=== PATIENT | female | born 1990 | race Caucasian/White ===

== ENCOUNTER 2018-02-10 07:55 | Emergency (ER) | payer OTHER ==
[2018-02-10] MEDS ORDERED: NA CHLORIDE 0.9% 1,000 ML ONE (08:25)
[2018-02-10 08:45] LABS: Absolute Lymphocytes (CBC) 1.5 K/uL (0.7-4.9); Absolute Monocytes 0.7 K/uL (0.1-1.3); Absolute Neutrophil 5.1 K/uL (1.8-8.0); Basophils % 0.5 % (0-1.3); Eosinophils % 1.1 % (0-4.4); Hematocrit 38.6 % (36.0-45.0); Lymphocytes % 20.4 % (15.3-44.8); MCH 28.5 pg (27.0-35.0); MCV 87.6 fL (80-100); MPV 10.4 fL (7.6-11.3); Monocytes % 8.8 % (3.3-12.3); RBC Red Blood Cell Count 4.41 M/uL (3.86-4.86)
--- NOTE | 2018-02-10 08:53 | RAD REPORT ---
EXAM DESCRIPTION: CT - Stone Protocol - 02/10/2018 8:35 am CLINICAL HISTORY: Right-sided back pain radiating to the right upper quadrant COMPARISON: None. TECHNIQUE: Axial 5 mm thick images were obtained without oral or IV contrast. The [id number] span s the entirety of the system partially obscuring uppermost abdomen and lung bases. All CT scans are performed using dose optimization technique as appropriate and may include automated exposure control or mA/KV adjustment according to patient size. FINDINGS: Mild dilatation of the right collecting system delete select to at least the pelvic level. Ureter is difficult to separate from the other soft tissues in the lower pelvis. There is a 3 millim eter calcification in the lower right pelvis. No other phleboliths seen. Although this is somewhat mo re medial than expected, this calcification could be within the distal ureter given the mild dilatati on on the patient's right-sided symptoms. No other obstructing or nonobstructing calculi of either collecting system or kidney. No perinephric stranding. No suspicious renal masses. Isodense masses and pyelonephritis are not excluded on a stone protocol CT scan. No urinary bladder suspicious finding. Uterus and ovaries show no suspicious findings. Imaged portions of the liver, spleen and pancreas show no suspicious findings on non-contrast imaging . No gallbladder or biliary tree abnormality identified. No significant adrenal finding. No suspicious bowel findings. No hernia, mass or bulky lymphadenopathy noted. No free air, free fluid or inflammatory stranding. No significant bony abnormality. IMPRESSION: Mild dilatation of the right collecting system. A 3 millimeter lower right pelvic calcif ication is probably but not definitively ureteral in location. No other renal or non renal calculi identified. No other significant finding to explain right-sided symptoms. Isodense masses and pyelonephritis are not excluded on stone protocol technique.
[2018-02-10 09:10] LABS: Potassium 4.1 mEq/L (3.6-5.0)
[2018-02-10 09:17] LABS: Bilirubin Direct 0.1 mg/dL (0-0.2); Bilirubin Total 0.5 mg/dL (0.3-1.2); Protein, Total 7.2 g/dL (6.0-8.3)
[2018-02-10] MEDS ORDERED: TAMSULOSIN 0.4 MG SR CAP ONE (09:34)
[2018-02-10] MEDS ORDERED: KETOROLAC 30 MG/ML INJ ONE (09:34)
[2018-02-10] MEDS ORDERED: Magnesium Sulfate 2gm IVPB 2 G/50 ML BAG IV ONE (09:35)
[2018-02-10] MEDS ORDERED: CEFTRIAXONE/SWI 1gm 1 GM/10 ML SYR ONE (09:35)
[2018-02-10 09:49] LABS: Urine Bacteria 20-50 /HPF (<20); Urine Culture Reflex Order REFLEXED; Urine Mucus 2+ /HPF (NONE SEEN)
[2018-02-10 09:50] LABS: Urine Blood 2+ (NEG); Urine Glucose NEGATIVE (NEG); Urine Protein 1+ (NEG); Urine pH 6.5 (5.0-7.0)
--- NOTE | 2018-02-10 10:22 | EDPHYS ---
Physician Documentation [facility] Name: Sydni Herrera Age: 27 yrs Sex: Female : 1990 Arrival Date: 02/10/2018 Time: 07:59 Bed 15 Private MD: None, None ED Physician Yury Chaparro HPI: 02/10 08:18 This 27 yrs old Female presents to ER via Ambulatory with complaints of Back cp Pain, Abdominal Pain. 08:18 The patient complains of pain in the right mid back. The pain radiates to the abdomen. cp Onset: The symptoms/episode began/occurred 3 day(s) ago. Modifying factors: the symptoms are aggravated by movement, palpation/percussion. Associated signs and symptoms: Pertinent negatives: diarrhea, fever, headache, pain radiating to the lower extremities, vomiting. Severity of pain: in the emergency department the pain is unchanged despite home interventions. 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 - Social history:: Smoking status: Patient/guardian denies using tobacco. ROS: 08:20 Constitutional: Negative for body aches, chills, fever, poor PO intake. cp 08:20 Eyes: Negative for injury, pain, redness, and discharge. cp 08:20 ENT: Negative for drainage from ear(s), ear pain, sore throat, difficulty swallowing, difficulty handling secretions. 08:20 Cardiovascular: Negative for chest pain, edema, palpitations. 08:20 Respiratory: Negative for cough, shortness of breath, wheezing. 08:20 Abdomen/GI: Positive for abdominal pain, Negative for vomiting, diarrhea, constipation, black/tarry stool, rectal bleeding. 08:20 : Positive for flank pain. 08:20 Skin: Negative for cellulitis, rash. 08:20 Neuro: Negative for altered mental status, headache, weakness. 08:20 All other systems are negative. Exam: 08:25 Head/Face: Normocephalic, atraumatic. cp 08:25 Constitutional: The patient appears in no acute distress, alert, awake, non-toxic, well developed, well nourished. 08:25 Eyes: Periorbital structures: appear normal, Conjunctiva: normal, no exudate, no injection, Sclera: no appreciated abnormality, Lids and lashes: appear normal, bilaterally. 08:25 ENT: External ear(s): are unremarkable, Nose: is normal, Mouth: Lips: moist, Oral mucosa: moist, Posterior pharynx: is normal, airway is patent, no erythema, no exudate. 08:25 Neck: ROM/movement: is normal, is supple, without pain, no range of motions cp limitations, no meningismus, no nuchal rigidity. 08:25 Chest/axilla: Inspection: normal, Palpation: is normal, no crepitus, no tenderness. 08:25 Cardiovascular: Rate: normal, Rhythm: regular. cp 08:25 Respiratory: the patient does not display signs of respiratory distress, Respirations: normal, no use of accessory muscles, no retractions, no splinting, no tachypnea, labored breathing, is not present, Breath sounds: are clear throughout, no decreased breath sounds, no stridor, no wheezing. 08:25 Abdomen/GI: Inspection: abdomen appears normal, Bowel sounds: active, all quadrants, Palpation: soft, in all quadrants, moderate abdominal tenderness, in the right upper quadrant and right lower quadrant, rebound tenderness, is not appreciated, involuntary guarding, is not appreciated. 08:25 Back: pain, that is moderate, of the right mid back, ROM is normal. cp 08:25 Skin: cellulitis, is not appreciated, no rash present. Vital Signs: 08:13 BP 126 / 83; Pulse 84; Resp 16; Temp 98.2; Pulse Ox 100% on R/A; Weight 72.57 kg; iw Height 5 ft. 7 in. (170.18 cm); Pain 7/10; 10:53 BP 113 / 84; Pulse 88; Resp 16; Pulse Ox 100% on R/A; Pain 3/10; sg 08:13 Body Mass Index 25.06 (72.57 kg, 170.18 cm) iw MDM: 08:06 Patient medically screened. cp 09:00 Differential diagnosis: nephrolithiasis, pyelonephritis, UTI, pancreatitis. cp 10:18 Data reviewed: vital signs, nurses notes, lab test result(s), radiologic studies, CT cp scan. 10:18 Counseling: I had a detailed discussion with the patient and/or guardian regarding: the cp historical points, exam findings, and any diagnostic results supporting the discharge/admit diagnosis, lab results, radiology results, to return to the emergency department if symptoms worsen or persist or if there are any questions or concerns that arise at home. Response to treatment: the patient's symptoms have mildly improved after treatment, and as a result, I will discharge patient. 02/10 08:17 Order name: Urine Dipstick--Ancillary (enter results); Complete Time: 10:15 em1 02/10 08:17 Order name: Urine --Ancillary (enter results); Complete Time: 10:15 em1 02/10 08:18 Order name: Urine Microscopic Only; Complete Time: 10:15 em1 02/10 10:16 Interpretation: Normal except: UWBC LOADED; URBC 10-20; UBACT 20-50. cp 02/10 08:23 Order name: Amylase, Serum; Complete Time: 10:15 cp 02/10 08:23 Order name: Basic Metabolic Panel; Complete Time: 10:15 cp 02/10 10:16 Interpretation: Normal except: GFR 89. cp 02/10 08:23 Order name: CBC with Diff; Complete Time: 08:56 cp 02/10 08:57 Interpretation: Within normal limits. cp 02/10 08:23 Order name: Creatinine for Radiology; Complete Time: 08:56 cp 02/10 08:23 Order name: Hepatic Function; Complete Time: 10:15 cp 02/10 08:23 Order name: Lipase; Complete Time: 10:15 cp 02/10 08:23 Order name: CT Stone Protocol; Complete Time: 08:56 cp 02/10 09:51 Order name: Urine Culture EDOH 02/10 08:17 Order name: Urine Dipstick-Ancillary (obtain specimen); Complete Time: 08:17 em1 02/10 08:17 Order name: Urine Test (obtain specimen); Complete Time: 08:17 em1 02/10 08:23 Order name: IV Saline Lock; Complete Time: 08:24 cp 02/10 08:23 Order name: Labs collected and sent; Complete Time: 08:24 cp Administered Medications: 08:43 Drug: NS 0.9% 1000 ml Route: IV; Rate: 1 bolus; Site: right antecubital; sg 09:30 Drug: Rocephin - (cefTRIAXone) 1 grams {Note: medication administered IVP per pharmacy protocol.} Route: IVPB; Infused Over: 30 mins; Site: right antecubital; 09:30 Drug: TORadol 30 mg Route: IVP; Site: right antecubital; sg 09:30 Drug: Flomax 0.4 mg Route: PO; sg 09:40 Drug: Magnesium Sulfate 2 grams Route: IVPB; Infused Over: 2 hrs; Site: right sg antecubital; Disposition: 12:00 Co-signature as Attending Physician, Yury Chaparro MD I agree with the assessment and kdr plan of care. Disposition: 02/10/18 10:20 Discharged to Home. Impression: Right Pyelonephritis. - Condition is Stable. - Discharge Instructions: Pyelonephritis, Adult. - Prescriptions for Tylenol- Codeine #3 300-30 mg Oral Tablet - take 2 tablets by ORAL route every 6 hours As needed; 20 tablet. Zofran 4 mg Oral Tablet - take 1 tablet by ORAL route every 12 hours As needed; 20 tablet. Cipro 500 mg Oral Tablet - take 1 tablet by ORAL route every 12 hours for 7 days; 14 tablet. Flomax 0.4 mg Oral Capsule, Sust. Release 24 hr - take 1 capsule by ORAL route once daily As needed 1/2 hour following the same meal each day; 5 capsule. - Work release form, Medication Reconciliation Form, Thank You Letter, Antibiotic Education, Prescription Opioid Use form. - Follow up: Michelle Conklni MD; When: 48 Hours; Reason: symptoms continue. - Problem is new. - Symptoms have improved. Signatures: Dispatcher [employer] EDMS Dandre Mariano RN RN Yury Chaparro MD MD kdr Kinga Wilks RN RN iw Bartolo Bletran em1 Josué Crooks PA PA cp Corrections: (The following items were deleted from the chart) 08:14 08:13 Home Meds: metoprolol tartrate 25 mg Oral tab daily; [facility] 10:53 10:20 02/10/2018 10:20 Discharged to Home. Impression: Right Pyelonephritis. Condition sg is Stable. Forms are Medication Reconciliation Form, Thank You Letter, Antibiotic Education, Prescription Opioid Use. Follow up: Michelle Conklin; When: 48 Hours; Reason: symptoms continue. Problem is new. Symptoms have improved. cp
--- NOTE | 2018-02-10 10:22 | ER ---
Nurse's Notes [facility] Name: Sydni Herrera Age: 27 yrs Sex: Female : 1990 Arrival Date: 02/10/2018 Time: 07:59 Bed 15 Private MD: None, None Diagnosis: Right Pyelonephritis Presentation: 02/10 08:09 Presenting complaint: Patient states: has had right mid back pain since Thursday, pain iw radiates to RUQ, described as sharp when she takes a deep breath in or when she moves a certain way, then pain is dull throughout day, rates pain 7/10, denies urinary symptoms, denies hx of kidney stones, denies injury to area, denies n/v/d. Transition of care: patient was not received from another setting of care. Onset of symptoms was February 10, 2018. Initial Sepsis Screen: Does the patient meet any 2 criteria? No. Patient's initial sepsis screen is negative. Does the patient have a suspected source of infection? No. Patient's initial sepsis screen is negative. Care prior to arrival: None. 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 - Social history:: Smoking status: Patient/guardian denies using tobacco. Screenin:43 Abuse screen: Denies threats or abuse. Denies injuries from another. Nutritional sg screening: No deficits noted. Tuberculosis screening: No symptoms or risk factors identified. Never had TB. Fall Risk None identified. Assessment: 08:37 General: Appears in no apparent distress. comfortable, well groomed, well developed, sg well nourished, Behavior is calm, cooperative, appropriate for age. Pain: Complains of pain in right mid back Pain radiates to right upper quadrant Quality of pain is described as tender. Neuro: Level of Consciousness is awake, alert, obeys commands, Oriented to person, place, time, Oncology Social Work are equal bilaterally Moves all extremities. Full function Speech is normal, Facial symmetry appears normal. Cardiovascular: Heart tones S1 S2 present Capillary refill is brisk in bilateral fingers Patient's skin is warm and dry. Chest pain is denied. Respiratory: Airway is patent Respiratory effort is even, unlabored, Respiratory pattern is regular, symmetrical. GI: No signs and/or symptoms were reported involving the gastrointestinal system. GI: Abdomen is flat, non-distended, Bowel sounds present X 4 quads. Abd is soft and non tender X 4 quads. : Reports pain in right flank(s), upper quadrant(s) urinary frequency. EENT: No signs and/or symptoms were reported regarding the EENT system. Derm: Skin is pink, warm \T\ dry. Musculoskeletal: No signs and/or symptoms reported regarding the musculoskeletal system. Vital Signs: 08:13 BP 126 / 83; Pulse 84; Resp 16; Temp 98.2; Pulse Ox 100% on R/A; Weight 72.57 kg; iw Height 5 ft. 7 in. (170.18 cm); Pain 7/10; 10:53 BP 113 / 84; Pulse 88; Resp 16; Pulse Ox 100% on R/A; Pain 3/10; sg 08:13 Body Mass Index 25.06 (72.57 kg, 170.18 cm) iw ED Course: 07:59 Patient arrived in ED. mr 07:59 None, None is Private Physician. mr 08:04 Dandre Mariano, RN is Primary Nurse. sg 08:06 Josué Crooks PA is PHCP. cp 08:06 Yury Chaparro MD is Attending Physician. cp 08:12 Triage completed. iw 08:13 Arm band placed on. iw 08:[address] vm2 08:30 Initial lab(s) drawn, by dc, sent to lab. Inserted saline lock: 22 gauge in right jb1 antecubital area, using aseptic technique. Blood collected. 08:34 CT completed. Patient tolerated procedure well. Patient moved to CT via wheelchair. vm2 Patient moved back from CT. 08:35 CT Stone Protocol In Process Unspecified. EDMS 08:40 Patient has correct armband on for positive identification. Pulse ox on. NIBP on. Head sg of bed elevated. 08:40 No provider procedures requiring assistance completed. sg 10:18 Michelle Conklin MD is Referral Physician. cp 10:53 IV discontinued, intact, bleeding controlled, No redness/swelling at site. Pressure sg dressing applied. Administered Medications: 08:43 Drug: NS 0.9% 1000 ml Route: IV; Rate: 1 bolus; Site: right antecubital; sg 09:30 Drug: Rocephin - (cefTRIAXone) 1 grams {Note: medication administered IVP per pharmacy protocol.} Route: IVPB; Infused Over: 30 mins; Site: right antecubital; 09:30 Drug: TORadol 30 mg Route: IVP; Site: right antecubital; sg 09:30 Drug: Flomax 0.4 mg Route: PO; sg 09:40 Drug: Magnesium Sulfate 2 grams Route: IVPB; Infused Over: 2 hrs; Site: right sg antecubital; Outcome: 10:20 Discharge ordered by MD. cp 10:50 Discharged to home ambulatory, with friend. 10:50 Condition: stable 10:50 Discharge instructions given to patient, Instructed on discharge instructions, follow up and referral plans. no drinking with medication, no driving heavy equipment, medication usage, safety practices, Demonstrated understanding of instructions, follow-up care, medications, Prescriptions given X 4. 10:53 Patient left the ED. Addendum: 02/13/2018 07:36 Addendum: Culture Results: Positive urine culture. No further action required. Bacteria a a5 sensitive to prescribed antibiotic. Signatures: Dispatcher [employer] Gerardo Rowe [email or web address] Dandre Mariano RN RN Irlanda Granados mr Kinga Wilks RN RN Kimberley Riggins RN RN aa5 Josué Crooks PA PA cp McGuire, Victoria 2 Corrections: (The following items were deleted from the chart) 02/10 08:14 08:13 Home Meds: metoprolol tartrate 25 mg Oral tab daily; iw iw
[2018-02-10 10:57] VITALS: BP 126/83; TEMP 98.2; O2SAT 100
== END 2018-02-10 10:53 | disposition home or self-care (01) ==
LOC: ER 07:55
DX: N12 Tubulo-interstitial nephritis, not specified as acute or chronic (principal)
CPT/HCPCS: 36415; 74176; 76377; 80048; 80076; 81003; 81015; 81025; 82150; 83690; 85025; 87077; 87086; 87088; 87186; 96374; 96375; 99284; J0696; J3475; J7030

== ENCOUNTER 2018-02-24 12:56 | Emergency (ER) | payer OTHER ==
[2018-02-24 13:32] LABS: Urine Blood TRACE (NEG); Urine Glucose NEGATIVE (NEG); Urine Protein NEGATIVE (NEG); Urine Specific Gravity >1.030 (1.005-1.030); Urine pH 5.5 (5.0-7.0)
[2018-02-24] MEDS ORDERED: CYCLOBENZAPRINE 10 MG TAB ONE (14:11)
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
[2018-02-24 15:25] VITALS: TEMP 97.6
[2018-02-24 15:27] VITALS: BP 94/68; O2SAT 100
== END 2018-02-24 15:21 | disposition home or self-care (01) ==
LOC: ER 12:56
DX: S13.9XXA Sprain of joints and ligaments of unspecified parts of neck, initial encounter (principal); S33.5XXA Sprain of ligaments of lumbar spine, initial encounter; S33.9XXA Sprain of unspecified parts of lumbar spine and pelvis, initial encounter; V49.49XA Driver injured in collision with other motor vehicles in traffic accident, initial encounter
CPT/HCPCS: 70450; 71250; 72125; 81003; 81025; 99284

== ENCOUNTER 2018-03-30 14:39 | Emergency (ER) | payer OTHER ==
--- NOTE | 2018-03-30 15:30 | EDPHYS ---
Physician Documentation [facility] Name: Sydni Herrera Age: 27 yrs Sex: Female : 1990 Arrival Date: 03/30/2018 Time: 14:43 Bed 23 Private MD: ED Physician Josué Herrera HPI: 03/30 15:24 This 27 yrs old Female presents to ER via Ambulatory with complaints of Back marsha Pain, Fever, 5 WKS . 15:24 The patient presents with pain that is acute, with no known mechanism of injury. The marsha symptoms are located in the low back, left low back and left mid back. Onset: The symptoms/episode began/occurred 2 day(s) ago. The pain does not radiate. Associated signs and symptoms: Pertinent positives: dysuria, fever. Modifying factors: The patient symptoms are alleviated by nothing, remaining still, rest. Severity of symptoms: At their worst the symptoms were mild, moderate, in the emergency department the symptoms are unchanged. 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 - Social history:: Smoking status: Patient/guardian denies using tobacco, Patient/guardian denies using alcohol. - Ebola Screening: : Patient negative for fever greater than or equal to 101.5 degrees Fahrenheit, and additional compatible Ebola Virus Disease symptoms Patient denies exposure to infectious person Patient denies travel to an Ebola-affected area in the 21 days before illness onset. - Family history:: not pertinent. ROS: 15:24 Constitutional: Negative for fever, chills, and weight loss, Eyes: Negative for injury, marsha pain, redness, and discharge, ENT: Negative for injury, pain, and discharge, Neck: Negative for injury, pain, and swelling, Cardiovascular: Negative for chest pain, palpitations, and edema, Respiratory: Negative for shortness of breath, cough, wheezing, and pleuritic chest pain, Abdomen/GI: Negative for abdominal pain, nausea, vomiting, diarrhea, and constipation, : Negative for injury, bleeding, discharge, and swelling, MS/Extremity: Negative for injury and deformity, Skin: Negative for injury, rash, and discoloration, Neuro: Negative for headache, weakness, numbness, tingling, and seizure, Psych: Negative for depression, anxiety, suicide ideation, homicidal ideation, and hallucinations, Allergy/Immunology: Negative for hives, rash, and allergies, Endocrine: Negative for neck swelling, polydipsia, polyuria, polyphagia, and marked weight changes, Hematologic/Lymphatic: Negative for swollen nodes, abnormal bleeding, and unusual bruising. 15:24 Back: Positive for injury or acute deformity, pain with movement, flank pain, on the right. Exam: 15:24 Constitutional: This is a well developed, well nourished patient who is awake, alert, marsha and in no acute distress. Head/Face: Normocephalic, atraumatic. Eyes: Pupils equal round and reactive to light, extra-ocular motions intact. Lids and lashes normal. Conjunctiva and sclera are non-icteric and not injected. Cornea within normal limits. Periorbital areas with no swelling, redness, or edema. ENT: Nares patent. No nasal discharge, no septal abnormalities noted. Tympanic membranes are normal and external auditory canals are clear. Oropharynx with no redness, swelling, or masses, exudates, or evidence of obstruction, uvula midline. Mucous membranes moist. Neck: Trachea midline, no thyromegaly or masses palpated, and no cervical lymphadenopathy. Supple, full range of motion without nuchal rigidity, or vertebral point tenderness. No Meningismus. Chest/axilla: Normal chest wall appearance and motion. Nontender with no deformity. No lesions are appreciated. Cardiovascular: Regular rate and rhythm with a normal S1 and S2. No gallops, murmurs, or rubs. Normal PMI, no JVD. No pulse deficits. Respiratory: Lungs have equal breath sounds bilaterally, clear to auscultation and percussion. No rales, rhonchi or wheezes noted. No increased work of breathing, no retractions or nasal flaring. Abdomen/GI: Soft, non-tender, with normal bowel sounds. No distension or tympany. No guarding or rebound. No evidence of tenderness throughout. Female : Normal external genitalia. Skin: Warm, dry with normal turgor. Normal color with no rashes, no lesions, and no evidence of cellulitis. MS/ Extremity: Pulses equal, no cyanosis. Neurovascular intact. Full, normal range of motion. Neuro: Awake and alert, GCS 15, oriented to person, place, time, and situation. Cranial nerves II-XII grossly intact. Motor strength 5/5 in all extremities. Sensory grossly intact. Cerebellar exam normal. Normal gait. Psych: Awake, alert, with orientation to person, place and time. Behavior, mood, and affect are within normal limits. 15:24 Back: pain, that is mild, that is moderate, of the left low back and left mid back, ROM is painful, normal spinal alignment noted, CVA tenderness, is absent, muscle spasm, is appreciated in the left low back and left mid back. Vital Signs: 14:48 BP 115 / 75; Pulse 91; Resp 18; Temp 99.2(O); Pulse Ox 98% on R/A; Weight 65.77 kg; hj Height 5 ft. 6 in. (167.64 cm); Pain 3/10; 14:48 Body Mass Index 23.40 (65.77 kg, 167.64 cm) MDM: 14:55 Patient medically screened. [facility] 15:24 Data reviewed: vital signs, nurses notes, lab test result(s), urinalysis. [facility] 03/30 15:24 Order name: Urine Culture [facility] 03/30 15:25 Order name: Urine Dipstick--Ancillary (enter results) 03/30 15:25 Order name: Urine --Ancillary (enter results) 03/30 15:24 Order name: PO challenge; Complete Time: 16:21 [facility] 03/30 15:24 Order name: Urine Dipstick-Ancillary (obtain specimen); Complete Time: 16:00 [facility] 03/30 15:24 Order name: Urine Test (obtain specimen); Complete Time: 16:00 [facility] Administered Medications: 16:00 Drug: Augmentin 875 mg Route: PO; aj1 16:21 Follow up: Response: No adverse reaction aj1 16:00 Drug: Tylenol 650 mg Route: PO; aj1 16:21 Follow up: Response: No adverse reaction aj1 16:00 Drug: Rocephin (cefTRIAXone) 1 grams Route: IM; Site: right gluteus; aj1 16:20 Follow up: Response: No adverse reaction aj1 16:20 Not Given (order changed to IM per Dr. Herrera): Rocephin - (cefTRIAXone) 1 grams IVPB aj1 once over 30 mins; (mix in 50 mL NS) Disposition: 03/30/18 15:29 Discharged to Home. Impression: Cystitis, Acute pharyngitis, related conditions, unspecified, first trimester, Fever, unspecified. - Condition is Stable. - Discharge Instructions: Dysuria, Fever, Adult, Pharyngitis, First Trimester of , [id number], Pharyngitis, [id number], Pelvic Rest, Sore Throat, [id number]. - Prescriptions for Augmentin 875- 125 mg Oral Tablet - take 1 tablet by ORAL route every 12 hours for 10 days; 20 tablet. Vitamin 27- 0.8 mg Oral Tablet - take 1 tablet by ORAL route once daily; 30 tablet. - Medication Reconciliation Form, Thank You Letter, Antibiotic Education, Prescription Opioid Use form. - Follow up: Private Physician; When: 2 - 3 days; Reason: Recheck today's complaints, Continuance of care, Re-evaluation by your physician. - Problem is new. - Symptoms have improved. Signatures: Dispatcher [employer] EDJanell Llamas RN RN aj1 Josué Herrera MD MD cha Joaquin, Henry, RN RN Corrections: (The following items were deleted from the chart) 16:23 15:29 03/30/2018 15:29 Discharged to Home. Impression: Cystitis; Acute pharyngitis; aj1 related conditions, unspecified, first trimester; Fever, unspecified. Condition is Stable. Forms are Medication Reconciliation Form, Thank You Letter, Antibiotic Education, Prescription Opioid Use. Follow up: Private Physician; When: 2 - 3 days; Reason: Recheck today's complaints, Continuance of care, Re-evaluation by your physician. Problem is new. Symptoms have improved. marsha
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
[2018-03-30 15:37] LABS: Urine Blood TRACE (NEG); Urine Glucose NEGATIVE (NEG); Urine Protein TRACE (NEG); Urine Specific Gravity 1.025 (1.005-1.030)
[2018-03-30] MEDS ORDERED: ACETAMINOPHEN 325 MG TABLET ONE (16:05)
[2018-03-30] MEDS ORDERED: CEFTRIAXONE 1000 MG/VIAL ONE (16:05)
[2018-03-30] MEDS ORDERED: AMOX/K CLAV 875 MG TAB ONE (16:06)
[2018-03-30 16:26] VITALS: BP 115/75; TEMP 99.2; O2SAT 98
== END 2018-03-30 16:23 | disposition home or self-care (01) ==
LOC: ER 14:39
DX: O23.11 Infections of bladder in pregnancy, first trimester (principal); J02.9 Acute pharyngitis, unspecified; Z3A.01 Less than 8 weeks gestation of pregnancy
CPT/HCPCS: 81003; 81025; 87077; 87086; 87088; 87186; 96372; 99283

== ENCOUNTER 2018-08-10 08:30 | Emergency (ER) | payer OTHER ==
[2018-08-10 09:13] LABS: Absolute Monocytes 1.2 K/uL (0.1-1.3); Absolute Neutrophil 9.6 K/uL (1.8-8.0); Basophils % 0.3 % (0-1.3); Eosinophils % 0.2 % (0-4.4); Hematocrit 30.6 % (36.0-45.0); Lymphocytes % 8.2 % (15.3-44.8); MCH 30.2 pg (27.0-35.0); MCV 87.3 fL (80-100); MPV 9.9 fL (7.6-11.3); Monocytes % 10.1 % (3.3-12.3)
[2018-08-10 09:28] LABS: Protime INR 1.01
[2018-08-10 09:34] LABS: ALT/SGPT 23 U/L (12-78); AST/SGOT 16 U/L (15-37); Albumin 2.7 g/dL (3.4-5.0); Alkaline Phosphatase 92 U/L (45-117); BUN Blood Urea Nitrogen 7 mg/dL (7-18); Bicarbonate 25 mmol/L (21-32); Bilirubin Direct 0.1 mg/dL (0-0.2); Bilirubin Total 0.3 mg/dL (0.2-1.0); Glucose Level 86 mg/dL (74-106); Magnesium 1.8 mg/dL (1.8-2.4); NT PRO-BNP 148 pg/mL (<125); Potassium 3.7 mmol/L (3.5-5.1); Sodium Level 137 mmol/L (136-145); Troponin (Emerg Dept Use Only) < 0.02 ng/mL (0.0-0.045)
--- NOTE | 2018-08-10 11:07 | RAD REPORT ---
EXAM DESCRIPTION: US - Extrem Venous W Compress Elieser - 08/10/2018 10:57 am CLINICAL HISTORY: elevated d-dimer in preg. Bilateral leg edema and swelling. COMPARISON: No comparisons TECHNIQUE: Real-time sonographic interrogation of the left and right lower extremity deep venous sys tems was performed. FINDINGS: Normal compressibility, flow augmentation, phasic flow and spontaneous flow is identified in both the left and right lower extremity deep venous systems. IMPRESSION: No sonographic evidence of left or right lower extremity deep venous thrombosis.
--- NOTE | 2018-08-10 11:15 | EDPHYS ---
Physician Documentation [facility] Name: Sydni Herrera Age: 27 yrs Sex: Female : 1990 Arrival Date: 08/10/2018 Time: 08:32 Bed 5 Private MD: None, None ED Physician Sebastian Bhagat HPI: 08/10 11:33 This 27 yrs old Female presents to ER via Wheelchair with complaints of Chest ps1 Pain - 24WK PG, Shortness Of Breath. 11:33 patient presenting with chest pain, shortness of breath, lower back pain. HX of ps1 WPW x2 ablations. Patient at [facility]. Dr. Reynaga () Candido ([facility]). Onset was this morning. Substernal , epigastric and lower back and ascending radiation. No hypoxia. No leg pain. No VB, CTX, LOF, DFM. . 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 - Social history:: Smoking status: Patient/guardian denies using tobacco. - Ebola Screening: : No symptoms or risks identified at this time. ROS: 11:33 Constitutional: Negative for fever, chills, and weight loss, Eyes: Negative for injury, ps1 pain, redness, and discharge, Respiratory: Negative for shortness of breath, cough, wheezing, and pleuritic chest pain, : Negative for injury, bleeding, discharge, and swelling, MS/Extremity: Negative for injury and deformity, Skin: Negative for injury, rash, and discoloration, Neuro: Negative for headache, weakness, numbness, tingling, and seizure. 11:33 Cardiovascular: Positive for chest pain. 11:33 Abdomen/GI: Positive for abdominal pain. 11:33 Back: Positive for lower back pain. Exam: 11:33 Constitutional: This is a well developed, well nourished patient who is awake, alert, ps1 and in no acute distress. Head/Face: Normocephalic, atraumatic. Eyes: Pupils equal round and reactive to light, extra-ocular motions intact. Lids and lashes normal. Conjunctiva and sclera are non-icteric and not injected. Chest/axilla: Normal chest wall appearance and motion. Nontender with no deformity. No lesions are appreciated. Respiratory: Lungs have equal breath sounds bilaterally, clear to auscultation and percussion. No rales, rhonchi or wheezes noted. No increased work of breathing, no retractions or nasal flaring. Abdomen/GI: Soft, non-tender, with normal bowel sounds. No distension or tympany. No guarding or rebound. No evidence of tenderness throughout. Back: No spinal tenderness. No costovertebral tenderness. Full range of motion. Skin: Warm, dry with normal turgor. Normal color with no rashes, no lesions, and no evidence of cellulitis. MS/ Extremity: Pulses equal, no cyanosis. Neurovascular intact. Full, normal range of motion. Neuro: Awake and alert, GCS 15, oriented to person, place, time, and situation. Cranial nerves II-XII grossly intact. Sensory grossly intact. 11:33 Cardiovascular: Rate: tachycardic, Rhythm: regular, Pulses: no pulse deficits are appreciated. 11:39 : Per OB RN: Cervix is closed and posterior. FHT 154 with accelerations. . ps1 Vital Signs: 08:41 BP 111 / 71; Pulse 105; Resp 15; Temp 97.9; Pulse Ox 100% on R/A; Pain 7/10; hb 09:06 BP 101 / 70; Pulse 103 MON; Resp 19; Pulse Ox 99% on R/A; sv 10:12 BP 100 / 68; Pulse 98; Resp 19; Pulse Ox 97% on R/A; sv 11:00 BP 97 / 71; Pulse 104; Resp 19; Temp 98; Pulse Ox 99% on R/A; sv 11:30 BP 115 / 67; Pulse 112; Resp 17; Pulse Ox 99% on R/A; sv 09:06 Sinus tachycardia sv MDM: 09:31 Patient medically screened. ps1 11:38 Data reviewed: vital signs, nurses notes, lab test result(s), EKG, radiologic studies, ps1 and as a result, I will transfer patient for EP evaluation. Otherwise stable. . Counseling: I had a detailed discussion with the patient and/or guardian regarding: the historical points, exam findings, and any diagnostic results supporting the discharge/admit diagnosis, the need to transfer to another facility, for higher level of care. 08/10 08:53 Order name: CBC with Diff; Complete Time: 09:53 ps1 08/10 08:53 Order name: LFT's; Complete Time: 09:36 ps1 08/10 08:53 Order name: Magnesium; Complete Time: 09:36 ps1 08/10 08:53 Order name: NT PRO-BNP; Complete Time: 09:36 ps1 08/10 08:53 Order name: PT-INR; Complete Time: 09:41 ps1 08/10 08:53 Order name: Troponin (emerg Dept Use Only); Complete Time: 09:36 ps1 08/10 08:53 Order name: CMP; Complete Time: 09:36 ps1 08/10 09:02 Order name: DD; Complete Time: 10:06 ps1 08/10 09:56 Order name: Extrem Venous W Compression Elieser US; Complete Time: 11:09 [facility] 08/10 11:42 Order name: Urine Dipstick--Ancillary (enter results); Complete Time: 12:28 bd 08/10 11:42 Order name: Urine --Ancillary (enter results); Complete Time: 12:28 bd 08/10 11:42 Order name: Urine Culture [facility] 08/10 11:42 Order name: Urine Microscopic Only; Complete Time: 12:28 [facility] 08/10 08:53 Order name: EKG; Complete Time: 08:54 ps1 08/10 08:53 Order name: Cardiac monitoring; Complete Time: 09:18 [facility] 08/10 08:53 Order name: EKG - Nurse/Tech; Complete Time: 09:18 [facility] 08/10 08:53 Order name: IV Saline Lock; Complete Time: 09:18 ps1 08/10 08:53 Order name: Labs collected and sent; Complete Time: 09:18 ps1 08/10 08:53 Order name: O2 Per Protocol; Complete Time: 09:18 ps1 08/10 08:53 Order name: O2 Sat Monitoring; Complete Time: 09:18 ps1 08/10 08:53 Order name: Urine Dipstick-Ancillary (obtain specimen); Complete Time: 11:48 ps1 EC:52 Rate is 98 beats/min. Rhythm is regular. QRS [place] is Normal. [place] interval is normal. QRS ps1 interval is normal. QT interval is normal. No Q waves. T waves are Normal. No ST changes noted. Clinical impression: WPW with faint delta waves. otherwise normal EKG. . Interpreted by me. Administered Medications: 11:57 CANCELLED (Duplicate Order): Rocephin - (cefTRIAXone) 1 grams IVPB once over 30 mins; sv (mix in 50 mL NS) 12:04 Drug: Rocephin - (cefTRIAXone) 1 grams Route: IVPB; Infused Over: 30 mins; Site: right antecubital; 12:06 Follow up: Response: No adverse reaction; IV Status: Completed infusion; IV Intake: sv 10ml ; given IVP Disposition: 08/10/18 11:14 Transfer ordered to [facility]. Diagnosis are WPW, Chest pain, Shortness of breath. - Reason for transfer: Higher level of care. - Accepting physician is [place]. - Condition is Stable. - Problem is an acute exacerbation. - Symptoms are unchanged. Signatures: Dispatcher [employer] Joy Andrade RN RN Denise Gannon RN RN Sebastian Bhagat MD MD ps1 Corrections: (The following items were deleted from the chart) 11:57 11:41 Rocephin - (cefTRIAXone) 1 grams IVPB once over 30 mins; (mix in 50 mL NS) sv ordered. ps1 11:57 11:57 Rocephin - (cefTRIAXone) 1 grams IVPB once over 30 mins; (mix in 50 mL NS) sv ordered. sv 12:34 11:14 08/10/2018 11:14 Transfer ordered to [facility]. sv Diagnosis is WPW; Chest pain; Shortness of breath. Reason for transfer: Higher level of care. Accepting physician is [place]. Condition is Stable. Problem is an acute exacerbation. Symptoms are unchanged. ps1
--- NOTE | 2018-08-10 11:15 | ER ---
Nurse's Notes [facility] Name: Sydni Herrera Age: 27 yrs Sex: Female : 1990 Arrival Date: 08/10/2018 Time: 08:32 Bed 5 Private MD: None, None Diagnosis: WPW;Chest pain;Shortness of breath Presentation: 08/10 08:40 Risk Assessment: Do you want to hurt yourself or someone else? Patient reports no sv desire to harm self or others. 08:43 Presenting complaint: Patient states: Low back pain x 2 days, SOB and left sided chest hb pain since this morning. Hx WPW. ablation x 2. Transition of care: patient was not received from another setting of care. Onset of symptoms was August 09, 2018. Initial Sepsis Screen: Does the patient meet any 2 criteria? No. Patient's initial sepsis screen is negative. Does the patient have a suspected source of infection? No. Patient's initial sepsis screen is negative. Care prior to arrival: None. 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 - Social history:: Smoking status: Patient/guardian denies using tobacco. - Ebola Screening: : No symptoms or risks identified at this time. Screenin:50 Abuse screen: Denies threats or abuse. Denies injuries from another. Nutritional sv screening: No deficits noted. Tuberculosis screening: No symptoms or risk factors identified. Fall Risk None identified. Assessment: 08:40 General: Appears in no apparent distress. comfortable, slender, well developed, sv Behavior is calm, cooperative, appropriate for age. Pain: Complains of pain in anterior aspect of left upper chest, xyphoid area and left breast Pain does not radiate. Pain currently is 7 out of 10 on a pain scale. Quality of pain is described as sharp, Pain began this morning while in the shower Is intermittent. Neuro: Level of Consciousness is awake, alert, obeys commands, Oriented to person, place, time, situation, Moves all extremities. Full function Speech is normal. Cardiovascular: Patient's skin is warm and dry. Rhythm is sinus rhythm. Respiratory: Reports shortness of breath on exertion Airway is patent Respiratory effort is even, unlabored, Respiratory pattern is regular, symmetrical. Derm: Skin is pink, warm \T\ dry. 08:45 Reassessment: TAMMI RN from L\T\D at bedside performing a vaginal exam on pt per Dr Bhagat. sv 10:20 Reassessment: Patient appears in no apparent distress at this time. No changes from sv previously documented assessment. Dr Bhagat in to speak with the pt regarding lab results. 10:30 Reassessment: Ultrasound at the bedside. sv 11:09 Reassessment: Patient appears in no apparent distress at this time. No changes from sv previously documented assessment. Patient and/or family updated on plan of care and expected duration. Pain level reassessed. Patient is alert, oriented x 3, equal unlabored respirations, skin warm/dry/pink. 11:53 Reassessment: Report called to Shireen at [facility]. sv Vital Signs: 08:41 BP 111 / 71; Pulse 105; Resp 15; Temp 97.9; Pulse Ox 100% on R/A; Pain 7/10; hb 09:06 BP 101 / 70; Pulse 103 MON; Resp 19; Pulse Ox 99% on R/A; sv 10:12 BP 100 / 68; Pulse 98; Resp 19; Pulse Ox 97% on R/A; sv 11:00 BP 97 / 71; Pulse 104; Resp 19; Temp 98; Pulse Ox 99% on R/A; sv 11:30 BP 115 / 67; Pulse 112; Resp 17; Pulse Ox 99% on R/A; sv 09:06 Sinus tachycardia sv ED Course: 08:32 Patient arrived in ED. sb2 08:33 None, None is Private Physician. sb2 08:40 Patient maintains SpO2 saturation greater than 95% on room air. sv 08:42 Joy Harvey, OPHELIA is Primary Nurse. sv 08:45 Triage completed. hb 08:45 bus driver/monitor on. Pulse ox on. NIBP on. Door closed. Warm blanket given. Head of bed sv elevated. 08:46 Arm band placed on right wrist. hb 08:48 Sebastian Bhagat MD is Attending Physician. ps1 08:50 Patient has correct armband on for positive identification. Placed in gown. Bed in low sv position. Side rails up X2. 08:50 Initial lab(s) drawn, by me, sent to lab. Inserted saline lock: 20 gauge in right sv antecubital area, using aseptic technique. Blood collected. Flushed right forearm with 5 ml normal saline. 08:57 EKG done, by health and safety tech. reviewed by Sebastian Bhagat MD. tc 10:21 Awaiting: Ultrasound. sv 10:43 Ultrasound completed. Patient tolerated well. aa4 10:56 Extrem Venous W Compression Elieser US In Process Unspecified. EDMS 11:09 Awaiting re-evaluation by ER provider. sv 12:33 No provider procedures requiring assistance completed. Patient transferred, IV remains sv in place. intact. Administered Medications: 11:57 CANCELLED (Duplicate Order): Rocephin - (cefTRIAXone) 1 grams IVPB once over 30 mins; sv (mix in 50 mL NS) 12:04 Drug: Rocephin - (cefTRIAXone) 1 grams Route: IVPB; Infused Over: 30 mins; Site: right hb antecubital; 12:06 Follow up: Response: No adverse reaction; IV Status: Completed infusion; IV Intake: sv 10ml ; given IVP Intake: 12:06 IV: 10ml; Total: 10ml. sv Outcome: 11:14 ER care complete, transfer ordered by . ps1 12:33 Transferred by ground EMS Transfer form completed. X-rays sent w/ patient. Note: sent sv to [facility] [place], report given to [facility]. 12:33 Condition: stable 12:33 Instructed on the need for transfer. 12:34 Patient left the ED. sv Addendum: 08/13/2018 07:58 Addendum: Culture Results: Positive urine culture. called [facility] who reports that patient s s has been discharged home. Rocephin given prior to transfer from our facility. Culture report shows sensitivity to Rocephin. Signatures: Dispatcher [employer] EDJoy Rosa RN RN January Villasenor aa4 Ewa Paulino RN RN Esthela Rodriguez, labor gang supervisor EKG Ttc Denise Gannon RN RN Sebastian Bhagat MD MD ps1 Claudia Carrillo sb2
[2018-08-10 12:09] LABS: Urine Blood TRACE (NEG); Urine Glucose NEGATIVE (NEG); Urine Protein NEGATIVE (NEG)
[2018-08-10] MEDS ORDERED: CEFTRIAXONE/SWI 1gm 1 GM/10 ML SYR ONE (12:09)
[2018-08-10 12:10] LABS: Urine Bacteria >50 /HPF (<20); Urine Culture Reflex Order NOT NEEDED; Urine RBC <5 /HPF (NONE SEEN)
[2018-08-10 12:44] VITALS: TEMP 98; O2SAT 99
[2018-08-10 12:45] VITALS: BP 115/67
--- NOTE | 2018-08-10 15:01 | EKG ---
Test Date: 2018-08-10 Test Time: 08:52:09 Technical Services Specialist: PAVEL MEASUREMENT RESULTS: Intervals: Rate: 98 VA: 130 QRSD: 82 QT: 342 QTc: 436 [place]: P: 12 VA: 130 QRS: 30 T: 35 INTERPRETIVE STATEMENTS: Normal sinus rhythm Normal ECG Compared to ECG 10/09/2012 21:32:27 No significant changes Electronically Signed On 08-10-18 15:00:52 FLAT SHEET MAKER by Osmar Gómez
== END 2018-08-10 12:34 | disposition designated cancer center or children's hospital (05) ==
LOC: ER 08:30
DX: O99.512 Diseases of the respiratory system complicating pregnancy, second trimester (principal); R06.02 Shortness of breath; O26.892 Other specified pregnancy related conditions, second trimester; I45.6 Pre-excitation syndrome; Z3A.24 24 weeks gestation of pregnancy
CPT/HCPCS: 36415; 80053; 80076; 81003; 81015; 81025; 83735; 83880; 84484; 85025; 85379; 85610; 87077; 87086; 87088; 87186; 93005; 93970; 96374; 99285; J0696

== ENCOUNTER 2020-05-30 11:25 | Emergency (ER) | payer OTHER ==
--- OUTSIDE RECORDS SUMMARY | 2020-05-30 11:28 | XMS REPORT | Continuity of Care Document ---
:1990 Author Organization [facility] t Address [address] [place] [address] Dr. Novak [address] [place] [id number] Care Team Providers Name Role Phone Unavailable Unavailable Unavailable Problems This patient has no known problems. Allergies, Adverse Reactions, Alerts This patient has no known allergies or adverse reactions. Medications This patient has no known medications. Procedures This patient has no known procedures. Encounters Start End Encounter Admission Attending Care Care Encounter Source Date/Time Date/Time Type Type Clinicians Facility Department ID 2019-11-06 2019-11-06 Emergency E [id number] [facility] 05:55:00 05:55:00 Results This patient has no known results.
[2020-05-30 12:22] LABS: Absolute Lymphocytes (CBC) 1.8 K/uL (0.7-4.9); Basophils % 0.9 % (0-1.3); Hematocrit 37.9 % (36.0-45.0); Lymphocytes % 22.1 % (15.3-44.8); MPV 10.2 fL (7.6-11.3); RBC Red Blood Cell Count 4.72 M/uL (3.86-4.86)
[2020-05-30 12:37] LABS: BUN Blood Urea Nitrogen 15 mg/dL (7-18); Bicarbonate 26 mmol/L (21-32); Glucose Level 85 mg/dL (74-106); Potassium 4.2 mmol/L (3.5-5.1); Sodium Level 141 mmol/L (136-145)
[2020-05-30 12:38] LABS: HCG, Quantitative < 1 mIU/mL (1-3)
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
--- NOTE | 2020-05-30 12:52 | EDPHYS ---
Physician Documentation [facility] Name: Sydni Herrera Age: 29 yrs Sex: Female : 1990 Arrival Date: 05/30/2020 Time: 11:28 Bed 14 Private MD: ED Physician Yury Chaparro HPI: 05/30 12:13 This 29 yrs old Female presents to ER via Ambulatory with complaints of jr8 Abdominal Cramping - < 8 Weeks Preg. 12:13 The patient presents to the emergency department with abdominal pain, of the lower jr8 abdomen, that started 3 day(s) ago, described as crampy. course: care: private OB physician, Leakage of Fluid: none appreciated, Ultrasound: the patient has not had an ultrasound, Risk/complications: no obvious risks or complications are appreciated. Associated signs and symptoms: The patient has no apparent associated signs or symptoms. The patient has not experienced similar symptoms in the past. The patient has not recently seen a physician. Patient stated that she is between 6-8 weeks . Has appointment for next week for first US but started to have lower abdominal cramping with light discharge that is intensifying. Denies vaginal spotting or bleeding . 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 - Social history:: Smoking status: Patient denies any tobacco usage or history of. Patient/guardian denies using alcohol, street drugs. ROS: 12:15 Eyes: Negative for injury, pain, redness, and discharge, ENT: Negative for injury, jr8 pain, and discharge, Neck: Negative for injury, pain, and swelling, Cardiovascular: Negative for chest pain, palpitations, and edema, Respiratory: Negative for shortness of breath, cough, wheezing, and pleuritic chest pain, Back: Negative for injury and pain, MS/Extremity: Negative for injury and deformity, Skin: Negative for injury, rash, and discoloration, Neuro: Negative for headache, weakness, numbness, tingling, and seizure. 12:15 Abdomen/GI: Positive for abdominal cramps, Negative for nausea, vomiting, and diarrhea, abdominal distension, anorexia, dysphagia, hematemesis, black/tarry stool, rectal pain, rectal bleeding, bowel incontinence, flatulence. Exam: 12:15 Eyes: Pupils equal round and reactive to light, extra-ocular motions intact. Lids and jr8 lashes normal. Conjunctiva and sclera are non-icteric and not injected. Cornea within normal limits. Periorbital areas with no swelling, redness, or edema. ENT: Nares patent. No nasal discharge, no septal abnormalities noted. Tympanic membranes are normal and external auditory canals are clear. Oropharynx with no redness, swelling, or masses, exudates, or evidence of obstruction, uvula midline. Mucous membranes moist. Neck: Trachea midline, no thyromegaly or masses palpated, and no cervical lymphadenopathy. Supple, full range of motion without nuchal rigidity, or vertebral point tenderness. No Meningismus. Cardiovascular: Regular rate and rhythm with a normal S1 and S2. No gallops, murmurs, or rubs. Normal PMI, no JVD. No pulse deficits. Respiratory: Lungs have equal breath sounds bilaterally, clear to auscultation and percussion. No rales, rhonchi or wheezes noted. No increased work of breathing, no retractions or nasal flaring. Abdomen/GI: Soft, non-tender, with normal bowel sounds. No distension or tympany. No guarding or rebound. No evidence of tenderness throughout. Back: No spinal tenderness. No costovertebral tenderness. Full range of motion. Skin: Warm, dry with normal turgor. Normal color with no rashes, no lesions, and no evidence of cellulitis. MS/ Extremity: Pulses equal, no cyanosis. Neurovascular intact. Full, normal range of motion. Neuro: Awake and alert, GCS 15, oriented to person, place, time, and situation. Cranial nerves II-XII grossly intact. Motor strength 5/5 in all extremities. Sensory grossly intact. Cerebellar exam normal. Normal gait. Vital Signs: 11:36 BP 129 / 81; Pulse 88; Resp 17; Temp 98.2; Pulse Ox 100% ; Weight 65.77 kg; Height 5 ll1 ft. 7 in. (170.18 cm); Pain 4/10; 11:36 Body Mass Index 22.71 (65.77 kg, 170.18 cm) ll1 MDM: 11:40 Patient medically screened. jr8 12:49 Data reviewed: vital signs, nurses notes, lab test result(s), and as a result, I will jr8 discharge patient. Data interpreted: Pulse oximetry: on room air is 100 %. Interpretation: normal. Counseling: I had a detailed discussion with the patient and/or guardian regarding: the historical points, exam findings, and any diagnostic results supporting the discharge/admit diagnosis, lab results, the need for outpatient follow up, an OB/Gyne specialist, to return to the emergency department if symptoms worsen or persist or if there are any questions or concerns that arise at home. ED course: Patients abdomen soft and benign. No vaginal bleeding or spotting per patient. HCG and UPT both negative. Explained to patient that in the absence of this there is no at this time. Recommended f/u with OB. If worse to come back . 05/30 11:49 Order name: Quantitative Hcg; Complete Time: 12:43 [facility] 05/30 11:49 Order name: Basic Metabolic Panel; Complete Time: 12:43 [facility] 05/30 11:49 Order name: Urine Test (obtain specimen) [facility] 05/30 11:49 Order name: CBC with Diff; Complete Time: 12:28 [facility] 05/30 13:05 Order name: Urine Dipstick--Ancillary (enter results) 05/30 13:05 Order name: Urine --Ancillary (enter results) 05/30 11:49 Order name: IV Saline Lock; Complete Time: 12:25 [facility] 05/30 11:49 Order name: Labs collected and sent; Complete Time: 12:25 [facility] 05/30 11:49 Order name: NPO; Complete Time: 12:25 [facility] 05/30 11:49 Order name: Urine Dipstick-Ancillary (obtain specimen); Complete Time: 12:25 Administered Medications: No medications were administered Disposition: 16:59 Co-signature as Attending Physician, Yury Chaparro MD I agree with the assessment and kdr plan of care. Disposition: 05/30/20 12:52 Discharged to Home. Impression: Unspecified condition associated with female genital organs and menstrual cycle. - Condition is Stable. - Discharge Instructions: Secondary Amenorrhea, Primary Amenorrhea. - Medication Reconciliation Form, Thank You Letter, Antibiotic Education, Prescription Opioid Use form. - Follow up: Private Physician; When: 1 week; Reason: Recheck today's complaints, Continuance of care, Re-evaluation by your physician. - Problem is new. - Symptoms are unchanged. Signatures: Dispatcher [employer] EDMS Yury Chaparro MD MD kdr Roszak, Josh, PA PA jr8 Amee Thompson RN RN ph Bryon Modi RN RN ll1 Corrections: (The following items were deleted from the chart) 13:30 12:52 05/30/2020 12:52 Discharged to Home. Impression: Unspecified condition associated ph with female genital organs and menstrual cycle. Condition is Stable. Forms are Medication Reconciliation Form, Thank You Letter, Antibiotic Education, Prescription Opioid Use. Follow up: Private Physician; When: 1 week; Reason: Recheck today's complaints, Continuance of care, Re-evaluation by your physician. Problem is new. Symptoms are unchanged. jr8
[2020-05-30 14:04] LABS: Urine Blood TRACE (NEG); Urine Glucose NEGATIVE (NEG); Urine Protein NEGATIVE (NEG); Urine Specific Gravity 1.015 (1.005-1.030); Urine pH 5.5 (5.0-7.0)
== END 2020-05-30 13:30 | disposition home or self-care (01) ==
LOC: ER 11:25
DX: O26.891 Other specified pregnancy related conditions, first trimester (principal); N94.9 Unspecified condition associated with female genital organs and menstrual cycle
CPT/HCPCS: 36415; 80048; 81003; 81025; 84702; 85025; 99284

== ENCOUNTER 2020-07-18 22:42 | Emergency (ER) | payer OTHER ==
--- OUTSIDE RECORDS SUMMARY | 2020-07-18 22:46 | XMS REPORT | Continuity of Care Document ---
:1990 Author Organization [facility] [place] Information LivingSocial Care Team Providers Name Role Phone [facility] Unavailable Un available Problems Problem Status Onset Classification Date Comments Sourc e Date Reported Contusion of 11/08/2019 [facility] [place] right hand, 0 initial encounter RIGHT HAND Active [facility] 0 [place] Medications Medication Details Route Status Patient Ordering Order Source Instructions Provider Date Ibuprofen 200 600 mg, Inactive MH MG Oral Route: PO, 020 [place] Tablet Drug form: TAB, ONCE, Dosing Weight 77, kg, Priority: STAT, Start date: 11/06/19 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, Stop date: 11/06/19 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 Allergies, Adverse Reactions, Alerts No Known Medication Allergies Immunizations No Data Provided for This Section Results No Data Provided for This Section Pathology Reports No Data Provided for This Section Diagnostic Reports Report Value Date Source Hand 3 views DX PROCEDURE INFORMATION: 11/06/2019 [facility] Exam: XR Right Hand Exam date and time: 11/06/2019 6:35 AM Age: 29 years old Clinical indication: Injury or trauma; Additiona l info: /punched a wall, has pain fourth and fifth fingers and ulnar aspect o f hand TECHNIQUE: Imaging protocol: XR Right hand. Views: 3 or more views. Frontal Oblique Lateral COMPARISON: No relevant prior studies available. FINDINGS: Bones/joints: The carpal bon es, metacarpal bones, and phalanges are intact. The joint spaces are maintained. Soft tissues: There are mult iple punctate radiopaque foreign bodies in the soft tissues overlying the 3rd through 5th digits. Notes: If there is further concern, nina mmend follow-up radiographs or MRI for complete assessment. IMPRESSION: No acute findings. Stephen Self MD On 11/06/2019 06:47:47; -[facility] [id number] Consultation Notes No Data Provided for This Section Discharge Summaries No Data Provided for This Section History and Physicals No Data Provided for This Section Vital Signs Vital Sign Value Date Comments Source Temperature Oral (F) 98.0 F 11/06/2019 [facility] Heart Rate 88 11/06/2019 [facility] Respitory Rate 18 11/06/2019 [facility] Systolic (mm Hg) 120 11/06/2019 [facility] Diastolic (mm Hg) [facility] Diastolic (mm Hg) 81 [facility] 106 11/06/2019 [facility] Respitory Rate 16 11/06/2019 [facility] Temperature Oral (F) 98.2 F 11/06/2019 [facility] Height 167.64 cm 11/06/2019 [facility] BMI Calculated 27.4 11/06/2019 [facility] Weight 77 11/06/2019 [facility] Encounters Location Location Encounter Encounter Reason Attending ADM DC Stat us Source Details Type Number For Provider Date Date Visit [facility] [id number] Kuldeep 11/06 11/06 [facility] Carlsonick /2019 [facility] Procedures No Data Provided for This Section Assessment and Plan No Data Provided for This Section Plan of Care No Data Provided for This Section Social History Social History Date Source Social History TypeResponse 11/06/2019 [facility] Smoking Status Never smoker; Exposure to Tobacco Smoke None; Cigarette Smoking Last 365 Days No; Reg Smoking Cessation Counseling No entered on: 11/06/19 Family History No Data Provided for This Section Advance Directives No Data Provided for This Section Functional Status No Data Provided for This Section
--- OUTSIDE RECORDS SUMMARY | 2020-07-18 22:46 | XMS REPORT | Continuity of Care Document ---
:[address] [facility] t Address [address] [place] [address] Care Team Providers Name Role Phone Anastacio Potter Attending Clinician Problems Condition Condition Condition Status Onset Resolution Last Treating Co mments Source Name Details Category Date Date Treatment Clinician Date RIGHT HAND Diagnosis Active 2020-05-10 [facility] PAIN 11-06 14:44:00 l RIGHT 01:00: [place] HAND PAIN 00 Active 11/06/2019 [facility] Contusion Problem 2019-11-08 2019-11-08 Mem[facility] of right 11-06 22:10:25 22:10:25 l hand, 18:00: [place] initial Contusion 00 encounter of right hand, initial encounter 11/06/2019 11/08/2019 [facility] Allergies, Adverse Reactions, Alerts This patient has no known allergies or adverse reactions. Social History Smoking Status Start Date Stop Date Source Social History Brook Hernández Medications Ordered Filled Start Stop Current Ordering Indication Dosage Frequency Signature Comments Components Source Medication Medication Date Date Medication? 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, Stop date: 11/06/19 6:49:00 CALL CENTER TEAM LEADER Vital Signs Vital Name Observation Time Observation Value Comments Source Temperature Oral (F) 2019-11-06 13:53:00 98.0 F Brook Hernández Heart Rate 2019-11-06 13:53:00 Brook Hernández Respitory Rate 2019-11-06 13:53:00 Vida Chadwick Systolic (mm Hg) 2019-11-06 13:53:00 Festus rial [place] Diastolic (mm Hg) 2019-11-06 13:53:00 Mem orial [place] Systolic (mm Hg) 2019-11-06 11:58:00 Festus rial [place] Diastolic (mm Hg) 2019-11-06 11:58:00 Mem orial [place] Heart Rate 2019-11-06 11:58:00 [facility] [place] Respitory Rate 2019-11-06 11:58:00 [facility] [place] Temperature Oral (F) 2019-11-06 11:58:00 98.2 F [facility] Height 2019-11-06 11:58:00 167.64 cm [facility] [place] BMI Calculated 2019-11-06 11:58:00 [facility] [place] Weight 2019-11-06 11:58:00 [facility] [place] Procedures This patient has no known procedures. Encounters Start End Encounter Admission Attending Care Care Encounter Source Date/Time Date/Time Type Type Clinicians Facility Department ID 2019-11-06 2019-11-06 Outpatient SAMIR Potter [id number] 05:55:37 07:54:00 [place] 00 Anastacio 2019-11-06 2019-11-06 Emergency E [facility] [id number] [facility] 05:55:00 05:55:00 Results This patient has no known results.
[2020-07-18 23:20] LABS: Basophils % 0.7 % (0-1.3); Hematocrit 31.3 % (36.0-45.0); Lymphocytes % 38.3 % (15.3-44.8); MPV 9.6 fL (7.6-11.3)
[2020-07-18 23:50] LABS: Potassium 3.7 mmol/L (3.5-5.1)
[2020-07-18 23:57] LABS: Urine Bacteria <20 /HPF (<20); Urine Culture Reflex Order REFLEXED; Urine RBC <5 /HPF (NONE SEEN)
--- NOTE | 2020-07-19 01:24 | EDPHYS ---
Physician Documentation [facility] Name: Sydni Herrera Age: 29 yrs Sex: Female : 1990 Arrival Date: 07/18/2020 Time: 22:45 Bed 6 Private MD: ED Physician Alex Salomon HPI: 07/18 22:58 This 29 yrs old Female presents to ER via Unassigned with complaints of rn Vaginal Bleeding, + Preg <12wks. 22:58 The patient presents to the emergency department with abdominal pain, of the suprapubic rn area, vaginal bleeding, described as spotting. The estimated gestational age is 8 weeks. course: care: none, Ultrasound: the patient has not had an ultrasound. Previous pregnancies: in previous pregnancies patient has had. The patient has experienced a previous episode. \T\ approx 8 weeks gestation by LMP, presents with suprapubic abd cramping assoc with vaginal spotting, no trauma, reports increased urinary frequency, has not had an ultrasound this pregnany. Does have 1 previous miscarriage. No fever/vaginal discharge. . 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 - Social history:: Smoking status: Patient denies any tobacco usage or history of. - Family history:: not pertinent. - Hospitalizations: : No recent hospitalization is reported. ROS: 22:58 Constitutional: Negative for fever, chills, and weight loss, Eyes: Negative for injury, rn pain, redness, and discharge, Neck: Negative for injury, pain, and swelling, Cardiovascular: Negative for chest pain, palpitations, and edema, Respiratory: Negative for shortness of breath, cough, wheezing, and pleuritic chest pain, Abdomen/GI: + lower abd cramping : + increased urinary frequency and vaginal spotting MS/Extremity: Negative for injury and deformity, Skin: Negative for injury, rash, and discoloration, Neuro: Negative for headache, weakness, numbness, tingling, and seizure. Exam: 22:58 Constitutional: This is a well developed, well nourished patient who is awake, alert, rn and in no acute distress. Ambulatory to room without difficulty. Head/Face: Normocephalic, atraumatic. Cardiovascular: Regular rate and rhythm. No pulse deficits. Respiratory: Speaking full sentences, unlabored. Abdomen/GI: soft, mild suprapubic tenderness, no rebound/guarding, no peritoneal signs. Skin: Warm, dry MS/ Extremity: Pulses equal, no cyanosis. Neuro: Awake and alert, GCS 15 Vital Signs: 22:59 BP 117 / 81; Pulse 95; Resp 18; Temp 99; Pulse Ox 100% ; Weight 70.31 kg; Height 5 ft. rv 6 in. (167.64 cm); Pain 4/10; 23:56 BP 116 / 75; Pulse 87; Resp 18; Pulse Ox 100% on R/A; mg2 07/19 01:21 BP 101 / 69; Pulse 81; Resp 17; Pulse Ox 98% on R/A; rv 07/18 22:59 Body Mass Index 25.02 (70.31 kg, 167.64 cm) rv MDM: 07/18 22:53 Patient medically screened. rn 07/19 01:21 Differential diagnosis: ectopic . Data reviewed: vital signs, nurses notes, fashion intern test result(s), radiologic studies, ultrasound, and as a result, I will discharge patient. Counseling: I had a detailed discussion with the patient and/or guardian regarding: the historical points, exam findings, and any diagnostic results supporting the discharge/admit diagnosis, lab results, radiology results, the need for outpatient follow up, to return to the emergency department if symptoms worsen or persist or if there are any questions or concerns that arise at home. Special discussion: I discussed with the patient/guardian in detail that at this point there is no indication for admission to the hospital. It is understood, however, that if the symptoms persist or worsen the patient needs to return immediately for re-evaluation. ED course: No pole yet, measures out to 5w6d, small subchorionic bleed noted, no bacteriuria, will dc home with OB f/u. RH+. . 07/18 22:54 Order name: Quantitative Hcg; Complete Time: 00:27 rn 07/18 22:54 Order name: Abo/rh Typing; Complete Time: 00:27 rn 07/18 22:54 Order name: Basic Metabolic Panel; Complete Time: 00:27 rn 07/18 22:54 Order name: CBC with Diff; Complete Time: 00:27 rn 07/18 22:58 Order name: Urine Microscopic Only; Complete Time: 00: rn 07/18 23:17 Order name: Urine --Ancillary (enter results) tt3 07/18 22:54 Order name: Urine Test (obtain specimen); Complete Time: 23:06 rn 07/18 22:54 Order name: IV Saline Lock; Complete Time: 23:03 rn 07/18 22:54 Order name: Labs collected and sent; Complete Time: 23:04 rn 07/18 22:54 Order name: NPO; Complete Time: 23:04 rn 07/18 22:54 Order name: Urine Dipstick-Ancillary (obtain specimen); Complete Time: 23:06 rn 07/18 22:54 Order name: US Transvaginal Ob rn 07/18 23:17 Order name: Urine Dipstick--Ancillary (enter results) tt3 07/18 23:58 Order name: Urine Culture EDMS Administered Medications: No medications were administered Point of Care Testing: Urine : 01:00 hCG Reading: Positive; Control Reading: Positive; mg2 Disposition: 07/19/20 01:24 Discharged to Home. Impression: Threatened . - Condition is Stable. - Discharge Instructions: Threatened Miscarriage, Vaginal Bleeding During , First Trimester, Pelvic Rest. - Medication Reconciliation Form, Thank You Letter, Antibiotic Education, Prescription Opioid Use form. - Follow up: Private Physician; When: As needed; Reason: Recheck today's complaints, Re-evaluation by your physician. - Problem is new. - Symptoms have improved. Signatures: Dispatcher [employer] EDMS Alex Salomon MD MD rn Vicente, Ronaldo, RN RN rv Corrections: (The following items were deleted from the chart) 01:38 01:24 07/19/2020 01:24 Discharged to Home. Impression: Threatened . Condition rv is Stable. Forms are Medication Reconciliation Form, Thank You Letter, Antibiotic Education, Prescription Opioid Use. Follow up: Private Physician; When: As needed; Reason: Recheck today's complaints, Re-evaluation by your physician. Problem is new. Symptoms have improved. rn
--- NOTE | 2020-07-19 01:24 | ER ---
Nurse's Notes [facility] Name: Sydni Herrera Age: 29 yrs Sex: Female : 1990 Arrival Date: 07/18/2020 Time: 22:45 Bed 6 Private MD: Diagnosis: Threatened Presentation: 07/18 22:59 Chief complaint: Patient states: ABOUT 6-8 WEEKS , URINARY FREQUENCY YESTERDAY, rv CRAMPING EARLIER TODAY, SPOTTING, TONIGHT. Coronavirus screen: Client denies travel out of the [place] in the last 14 days. Ebola Screen: No symptoms or risks identified at this time. Initial Sepsis Screen: Does the patient meet any 2 criteria? No. Patient's initial sepsis screen is negative. Does the patient have a suspected source of infection? No. Patient's initial sepsis screen is negative. Risk Assessment: Do you want to hurt yourself or someone else? Patient reports no desire to harm self or others. Onset of symptoms was July 18, 2020 at 22:00. 22:59 Method Of Arrival: Ambulatory rv 22:59 Acuity: RICHARD 3 rv Triage Assessment: 23:01 General: Appears comfortable, Behavior is calm, cooperative. Pain: Complains of pain in rv suprapubic area. EENT: No signs and/or symptoms were reported regarding the EENT system. Neuro: Level of Consciousness is awake, alert, obeys commands, Oriented to person, place, time, situation. Cardiovascular: Patient's skin is warm and dry. Respiratory: Airway is patent Respiratory effort is even, unlabored, Breath sounds are clear bilaterally. : Reports urgency, urinary frequency, since YESTERDAY vaginal bleeding that is spotty. Derm: Skin is intact. 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 - Social history:: Smoking status: Patient denies any tobacco usage or history of. - Family history:: not pertinent. - Hospitalizations: : No recent hospitalization is reported. Screenin:02 Abuse screen: Denies threats or abuse. Denies injuries from another. Nutritional rv screening: No deficits noted. Tuberculosis screening: No symptoms or risk factors identified. Fall Risk None identified. Assessment: 23:04 General: Appears in no apparent distress. comfortable, Behavior is calm, cooperative. mg2 Pain: Complains of pain in abdomen and suprapubic area. Neuro: Level of Consciousness is awake, alert, obeys commands, Oriented to person, place, time, situation. Cardiovascular: Capillary refill < 3 seconds. Respiratory: Airway is patent Respiratory effort is even, unlabored, Respiratory pattern is regular, symmetrical. GI: Reports lower abdominal pain, cramping. : Reports vaginal bleeding that is light flow. EENT: No signs and/or symptoms were reported regarding the EENT system. Derm: Skin is intact, is healthy with good turgor, Skin is pink, warm \\T\\ dry. normal. Musculoskeletal: Circulation, motion, and sensation intact. Capillary refill < 3 seconds. 23:56 Reassessment: Patient appears in no apparent distress at this time. Patient and/or mg2 family updated on plan of care and expected duration. Pain level reassessed. Patient is alert, oriented x 3, equal unlabored respirations, skin warm/dry/pink. 07/19 00:53 Reassessment: Patient appears in no apparent distress at this time. Patient and/or mg2 family updated on plan of care and expected duration. Pain level reassessed. Patient is alert, oriented x 3, equal unlabored respirations, skin warm/dry/pink. waiting for the ultrasound. 01:00 Obstetrical Assessment: General assessment: awake and alert. mg2 Vital Signs: 07/18 22:59 BP 117 / 81; Pulse 95; Resp 18; Temp 99; Pulse Ox 100% ; Weight 70.31 kg; Height 5 ft. rv 6 in. (167.64 cm); Pain 4/10; 23:56 BP 116 / 75; Pulse 87; Resp 18; Pulse Ox 100% on R/A; mg2 07/19 01:21 BP 101 / 69; Pulse 81; Resp 17; Pulse Ox 98% on R/A; rv 07/18 22:59 Body Mass Index 25.02 (70.31 kg, 167.64 cm) rv Vitals: 01:37 Heart Tones VIA ULTRASOUND. rv ED Course: 07/18 22:45 Patient arrived in ED. mr 22:52 Harsha Webber, OPHELIA is Primary Nurse. rv 22:53 Alex Salomon MD is Attending Physician. rn 23:01 Triage completed. rv 23:02 Arm band placed on Patient placed in the treatment room, on a stretcher, Patient rv notified of wait time. 23:03 Patient has correct armband on for positive identification. Pulse ox on. NIBP on. rv 23:04 No provider procedures requiring assistance completed. Inserted saline lock: 20 gauge mg2 in right antecubital area, using aseptic technique. Blood collected. 07/19 01:37 IV discontinued, intact, bleeding controlled, No redness/swelling at site. Pressure rv dressing applied. 06:52 US Transvaginal Ob In Process Unspecified. EDMS Administered Medications: No medications were administered Point of Care Testing: Urine : 01:00 hCG Reading: Positive; Control Reading: Positive; mg2 Outcome: 01:24 Discharge ordered by MD. rn 01:37 Discharged to home ambulatory. rv 01:37 Condition: good 01:37 Discharge instructions given to patient, Instructed on discharge instructions, follow up and referral plans. Demonstrated understanding of instructions, follow-up care. 01:38 Patient left the ED. rv Addendum: 07/23/2020 08:33 Addendum: Culture Results: Positive urine culture. Phone call Attempt #1 Attempted to a a5 call pt's phone "busy" message several times. Called pt's person to Notify, sister states she will notify pt to call back to ER. 13:35 Addendum: Culture Results: Prescription called-in to pharmacy of choice. to [facility] a5 pharmacy in [place], [place] per pt's request. Signatures: Dispatcher [employer] Bella Brizuela Roman, MD MD rn Calderon, Audri RN RN aa5 Michael Malin, OPHELIA RN mg2 Harsha Webber RN RN rv
[2020-07-19 01:26] LABS: Urine Blood NEGATIVE (NEG); Urine Glucose NEGATIVE (NEG); Urine Protein NEGATIVE (NEG); Urine Specific Gravity 1.025 (1.005-1.030)
[2020-07-19 02:06] VITALS: TEMP 99
[2020-07-19 02:12] VITALS: BP 101/69; O2SAT 98
--- NOTE | 2020-07-19 07:53 | RAD REPORT ---
EXAM DESCRIPTION: US - Transvaginal OB - 07/19/2020 6:51 am CLINICAL HISTORY: with vaginal bleeding COMPARISON: None. FINDINGS: The uterus measures 9 x 6 x 7 centimeters. A normal appearing gestational sac is present within the endometrium measuring 10 millimeters. . Within this is a yolk sac. A pole is not vis ualized. A 2.4 x 0.8 centimeter subchorionic bleed is present Right and left ovary appear normal. . An adnexal mass is not noted. No significant free fluid is seen. IMPRESSION: This may represent a normal intrauterine which the pole is not visualize d secondary to the early gestation. Estimated gestational age equals 5 weeks 5 days. Another consideration is that this is a failed . This should be correlated clinically and with serial beta HCG levels. Followup endovaginal sonogram 1 week recommended Subchorionic bleed
== END 2020-07-19 01:38 | disposition home or self-care (01) ==
LOC: ER 22:42
DX: O20.0 Threatened abortion (principal); Z3A.08 8 weeks gestation of pregnancy; I45.6 Pre-excitation syndrome
CPT/HCPCS: 36415; 76817; 80048; 81003; 81015; 81025; 84702; 85025; 86900; 86901; 87077; 87086; 87088; 87186; 99284

== ENCOUNTER 2020-09-01 | Emergency (ER) | payer OTHER ==
--- OUTSIDE RECORDS SUMMARY | 2020-09-01 10:01 | XMS REPORT | Continuity of Care Document ---
:1990 Author Organization [facility] [place] Information iRewardChart Care Team Providers Name Role Phone [facility] Knotice Unavailable Un available Problems Problem Status Onset Classification Date Comments Sourc e Date Reported Contusion of 11/08/2019 [facility] [place] right hand, 0 initial encounter RIGHT HAND Active [facility] 0 [place] Medications Medication Details Route Status Patient Ordering Order Source Instructions Provider Date Ibuprofen 200 600 mg, Inactive [facility] Oral Route: PO, 020 [place] Tablet Drug form: TAB, ONCE, Dosing Weight 77, kg, Priority: STAT, 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 Stephen Self MD On 11/06/2019 06:47:47; -[facility] [id number] Consultation Notes No Data Provided for This Section Discharge Summaries No Data Provided for This Section History and Physicals No Data Provided for This Section Vital Signs Vital Sign Value Date Comments Source Temperature Oral (F) 98.0 F 11/06/2019 [facility] Heart Rate 88 11/06/2019 [facility] Respitory Rate 18 11/06/2019 [facility] Systolic (mm Hg) 120 11/06/2019 [facility] Diastolic (mm Hg) 80 [facility]06[facility] Diastolic (mm Hg) 81 [facility] 106 11/06/2019 [facility] Respitory Rate 16 11/06/2019 [facility] Temperature Oral (F) 98.2 F 11/06/2019 [facility] Height 167.64 cm 11/06/2019 [facility] BMI Calculated 27.4 11/06/2019 [facility] Weight 77 11/06/2019 [facility] Encounters Location Location Encounter Encounter Reason Attending ADM DC Stat us Source Details Type Number For Provider Date Date Visit [facility] [id number] Kuldeep 11/06 11/06 [facility]sonick /2019 [facility] Procedures No Data Provided for This Section Assessment and Plan No Data Provided for This Section Plan of Care No Data Provided for This Section Social History Social History Date Source Social History TypeResponse 11/06/2019 [facility] Smoking Status Never smoker; Exposure to Tobacco Smoke None; Cigarette Smoking Last 365 Days No; Reg Smoking Cessation Counseling No entered on: 11/06/19 Family History No Data Provided for This Section Advance Directives No Data Provided for This Section Functional Status No Data Provided for This Section
--- OUTSIDE RECORDS SUMMARY | 2020-09-01 10:01 | XMS REPORT | Continuity of Care Document ---
:1990 Author Organization [facility] t Address [address] [place] [address] Care Team Providers Name Role Phone Anastacio Potter Attending Clinician Problems Condition Condition Condition Status Onset Resolution Last Treating Co mments Source Name Details Category Date Date Treatment Clinician Date RIGHT HAND Diagnosis Active 2020-05-10 [facility] 11-06 14:44:00 l RIGHT 01:00: [facility] HAND PAIN 00 Active 11/06/2019 [facility] Contusion Problem 2019-11-08 2019-11-08 [facility] of right 11-06 22:10:25 22:10:25 l hand, 18:00: [facility] initial Contusion 00 encounter of right hand, initial encounter 11/06/2019 11/08/2019 [facility] Allergies, Adverse Reactions, Alerts This patient has [...] kg, Priority: STAT, 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, 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: 11/06/19 6:49:00 JOINER APPRENTICE Vital Signs Vital Name Observation Time Observation Value Comments Source Temperature Oral (F) 2019-11-06 13:53:00 98.0 F Brook Hernández Heart Rate 2019-11-06 13:53:00 Brook Hernández Respitory Rate 2019-11-06 13:53:00 Vida al [place] Systolic (mm Hg) 2019-11-06 13:53:00 Festus rial [facility] Diastolic (mm Hg) 2019-11-06 13:53:00 Mem orial [facility] Systolic (mm Hg) 2019-11-06 11:58:00 Festus rial [facility] Diastolic (mm Hg) 2019-11-06 11:58:00 Mem orial [facility] Heart Rate 2019-11-06 11:58:00 [facility] Respitory [facility] Temperature Oral (F) 2019-11-06 11:58:00 98.2 F [facility] Height 2019-11-06 11:58:00 167.64 cm [facility] [place] BMI Calculated 2019-11-06 11:58:00 [facility] Weight 2019-11-06 11:58:00 [facility] [place] Procedures This patient has no known procedures. Encounters Start End Encounter Admission Attending Care Care Encounter Source Date/Time Date/Time Type Type Clinicians Facility Department ID 2019-11-06 2019-11-06 Outpatient SAMIR Potter [id number] 05:55:37 07:54:00 [place] 00 Anastacio 2019-11-06 2019-11-06 Emergency E [id number] [facility] 05:55:00 05:55:00 Results This patient has no known results.
--- NOTE | 2020-09-01 11:46 | EDPHYS ---
Physician Documentation [facility] Name: Sydni Herrera Age: 29 yrs Sex: Female : 1990 Arrival Date: 09/01/2020 Time: 10:00 Bed 19 Private MD: ED Physician Alex Salomon HPI: 09/01 11:26 This 29 yrs old Female presents to ER via Ambulatory with complaints of rn Vaginal Bleeding, + Preg <12wks. 11:26 The patient presents to the emergency department with vaginal bleeding, that is light. rn The estimated gestational age is 12 weeks. course: care: private OB physician, Leakage of Fluid: none appreciated, Ultrasound: the patient had an ultrasound, Risk/complications: no obvious risks or complications are appreciated. The patient has experienced a previous episode. The patient has been recently seen by a physician:. Reports seen by her OB this past Thursday, told had subchorionic bleed, reports vaginal bleeding present, and abd cramping, mild. No trauma. NO urinary symptoms. . Historical: - Allergies: 10:18 NKA; ss - PMHx: 10:18 Tachycardia; WPW; ss - PSHx: 10:18 ABLATION; ss - Immunization history:: Adult Immunizations up to date. - Social history:: Smoking status: Patient denies any tobacco usage or history of. - Family history:: not pertinent. - Hospitalizations: : No recent hospitalization is reported. ROS: 11:26 Constitutional: Negative for fever, chills, and weight loss, Cardiovascular: Negative rn for chest pain, palpitations, and edema, Respiratory: Negative for shortness of breath, cough, wheezing, and pleuritic chest pain, Abdomen/GI: + abd cramping : + vaginal bleeding MS/Extremity: Negative for injury and deformity, Skin: Negative for injury, rash, and discoloration, Neuro: Negative for headache, weakness, numbness, tingling, and seizure. Exam: 11:26 Constitutional: This is a well developed, well nourished patient who is awake, alert, rn and in no acute distress. Cardiovascular: Regular rate and rhythm. No pulse deficits. Respiratory: No increased work of breathing, no retractions or nasal flaring. Abdomen/GI: Soft, non-tender MS/ Extremity: Pulses equal, no cyanosis. Neurovascular intact. Full, normal range of motion. Equal circumference. Vital Signs: 10:15 BP 123 / 73; Pulse 85; Resp 14; Temp 98.2(TE); Pulse Ox 100% on R/A; Weight 74.84 kg; ss Height 5 ft. 7 in. (170.18 cm); Pain 4/10; 11:50 BP 118 / 68; Pulse 87; Resp 18; Temp 97.9; Pulse Ox 100% on R/A; ph 10:15 Body Mass Index 25.84 (74.84 kg, 170.18 cm) ss Procedures: 11:26 Ultrasound: Type: OB, performed by the emergency department physician, Bedside rn transabdominal ultrasound performed by Dr. Saloomn, FHTs 168, good movement, + small subchorionic blood, no abd free fluid, all images shown to patient, nurse at bedside as well.. MDM: 11:12 Patient medically screened. rn 11:26 Differential diagnosis: subchorionic bleed. Data reviewed: vital signs, nurses notes, rn old medical records, radiologic studies, ultrasound, and as a result, I will discharge patient. Counseling: I had a detailed discussion with the patient and/or guardian regarding: the historical points, exam findings, and any diagnostic results supporting the discharge/admit diagnosis, lab results, radiology results, the need for outpatient follow up, to return to the emergency department if symptoms worsen or persist or if there are any questions or concerns that arise at home. Special discussion: I discussed with the patient/guardian in detail that at this point there is no indication for admission to the hospital. It is understood, however, that if the symptoms persist or worsen the patient needs to return immediately for re-evaluation. Based on the history and exam findings, there is no indication for further emergent testing or inpatient evaluation. I discussed with the patient/guardian the need to see the OB Gyne specialist for further evaluation of the symptoms. ED course: blood type from previous bloodwork O+, no urinary symptoms, will dc with OB f/u. . Administered Medications: No medications were administered Disposition: 09/01/20 11:45 Discharged to Home. Impression: Threatened , Subchorionic bleed. - Condition is Stable. - Discharge Instructions: Threatened Miscarriage, Vaginal Bleeding During , First Trimester, Pelvic Rest. - Medication Reconciliation Form, Thank You Letter, Antibiotic Education, Prescription Opioid Use form. - Follow up: Private Physician; When: 2 - 3 days; Reason: Recheck today's complaints, Re-evaluation by your physician. - Problem is new. - Symptoms have improved. Signatures: Alex Salomon MD MD rn SmirEwa bailey RN RN Amee Thompson RN RN ph Corrections: (The following items were deleted from the chart) 11:51 11:45 09/01/2020 11:45 Discharged to Home. Impression: Threatened ; ph Subchorionic bleed. Condition is Stable. Forms are Medication Reconciliation Form, Thank You Letter, Antibiotic Education, Prescription Opioid Use. Follow up: Private Physician; When: 2 - 3 days; Reason: Recheck today's complaints, Re-evaluation by your physician. Problem is new. Symptoms have improved. rn
--- NOTE | 2020-09-01 11:46 | ER ---
Nurse's Notes [facility] Name: Sydni Herrera Age: 29 yrs Sex: Female : 1990 Arrival Date: 09/01/2020 Time: 10:00 Bed 19 Private MD: Diagnosis: Threatened ;Subchorionic bleed Presentation: 09/01 10:15 Chief complaint: Patient states: "I've had back pain all week and started cramping ss yesterday. Spotting that began this morning." Pt reports she is 11 weeks and 5 days . Coronavirus screen: Client denies travel out of the [place] in the last 14 days. Ebola Screen: Patient denies exposure to infectious person. Patient denies travel to an Ebola-affected area in the 21 days before illness onset. Initial Sepsis Screen: Does the patient meet any 2 criteria? No. Patient's initial sepsis screen is negative. Does the patient have a suspected source of infection? No. Patient's initial sepsis screen is negative. Risk Assessment: Do you want to hurt yourself or someone else? Patient reports no desire to harm self or others. Onset of symptoms was September 01, 2020. 10:15 Method Of Arrival: Ambulatory ss 10:15 Acuity: RICHARD 3 ss Historical: - Allergies: 10:18 NKA; ss - PMHx: 10:18 Tachycardia; WPW; ss - PSHx: 10:18 ABLATION; ss - Immunization history:: Adult Immunizations up to date. - Social history:: Smoking status: Patient denies any tobacco usage or history of. - Family history:: not pertinent. - Hospitalizations: : No recent hospitalization is reported. Screenin:42 Abuse screen: Denies threats or abuse. Denies injuries from another. Nutritional ph screening: No deficits noted. Tuberculosis screening: No symptoms or risk factors identified. Fall Risk None identified. Assessment: 11:30 Reassessment: Patient appears in no apparent distress at this time. Patient and/or ph family updated on plan of care and expected duration. Pain level reassessed. Dr Salomon at bedside for US, movement noted, HR 167. 11:43 Obstetrical Assessment: General assessment: awake and alert, skin warm and dry, ph respirations even and unlabored. General: Appears in no apparent distress. comfortable, well groomed, Behavior is calm, cooperative, appropriate for age. Pain: Complains of pain in suprapubic area Quality of pain is described as crampy. Neuro: Level of Consciousness is awake, alert, obeys commands, Oriented to person, place, time, situation. Cardiovascular: Capillary refill < 3 seconds in bilateral fingers Patient's skin is warm and dry. Respiratory: Airway is patent Respiratory effort is even, unlabored, Respiratory pattern is regular, symmetrical. : Reports vaginal bleeding that is light flow. Derm: Skin is intact, is healthy with good turgor, Skin is clammy. Vital Signs: 10:15 BP 123 / 73; Pulse 85; Resp 14; Temp 98.2(TE); Pulse Ox 100% on R/A; Weight 74.84 kg; ss Height 5 ft. 7 in. (170.18 cm); Pain 4/10; 11:50 BP 118 / 68; Pulse 87; Resp 18; Temp 97.9; Pulse Ox 100% on R/A; ph 10:15 Body Mass Index 25.84 (74.84 kg, 170.18 cm) ss Vitals: 11:45 Heart Tones 167 per US. ph ED Course: 10:00 Patient arrived in ED. as 10:17 Triage completed. ss 10:18 Arm band placed on left wrist. ss 11:12 Alex Salomon MD is Attending Physician. rn 11:40 Amee Thompson RN is Primary Nurse. ph 11:44 No provider procedures requiring assistance completed. Patient did not have IV access ph during this emergency room visit. 11:45 Patient has correct armband on for positive identification. Bed in low position. Call ph light in reach. Side rails up X 1. Pulse ox on. NIBP on. Door closed. Noise minimized. Warm blanket given. Administered Medications: No medications were administered Outcome: 11:45 Discharge ordered by . rn 11:50 Discharged to home ambulatory. ph 11:50 Condition: good 11:50 Discharge instructions given to patient, Instructed on discharge instructions, follow up and referral plans. pelvic rest Demonstrated understanding of instructions, follow-up care. 11:51 Patient left the ED. ph Signatures: Traci Beltran Roman, MD MD rn Smirch, Shelby, RN RN Amee Thompson RN RN ph
== END 2020-09-01 11:51 | disposition home or self-care (01) ==
CPT/HCPCS: 99283